=== PATIENT | male | born 1970 | race Two or more races ===

== ENCOUNTER → 2021-03-12 | Outpatient (CLI) | payer BC ==
--- NOTE | 2021-03-12 11:39 | RAD ---
EXAM: CT CHEST WITHOUT CONTRAST-LOW DOSE LUNG SCREENING HISTORY: Nicotine dependence COMPARISON: None TECHNIQUE: Helical CT of the chest performed without contrast. Coronal and sagittal reformats were o btained. One or more of the following individualized dose reduction techniques were utilized for this examinat ion: 1. Automated exposure control 2. Adjustment of the mA and/or kV according to patient size 3. Use of iterative reconstruction technique. FINDINGS: Thyroid gland and thoracic inlet: Visualized portion of the thyroid gland is normal. Heart and great vessels: Heart is normal in size. No pericardial effusion. No coronary artery calcifi cations. The thoracic aorta is normal. Mediastinum and rory: No lymphadenopathy. Lungs and pleura: There is a calcified granuloma in the left lower lobe. No other pulmonary nodules. No pleural effusion. The airways are clear. Chest wall and axillae: No axillary lymphadenopathy. Upper abdomen: Normal. Bones: No acute osseous abnormality. IMPRESSION: Single calcified granuloma in the left lower lobe. No suspicious nodules. Lung RADS scor e 1-negative. Recommend continued annual screening with low-dose CT in 12 months. Electronically signed by: Fozia Crum MD (03/12/2021 11:37 AM) [id number]
== END ==
LOC: CT 09:04
PROVIDERS: ATTEND Nurse Practitioner Family
DX: J98.4 Other disorders of lung (principal); J84.10 Pulmonary fibrosis, unspecified; Z72.0 Tobacco use
CPT/HCPCS: 71271